=== PATIENT | female | born 1970 | race Caucasian/White ===

== ENCOUNTER 2020-12-23 14:34 | Emergency (ER) | payer BC ==
[~2020-12-23] VITALS: Ht 160 cm; Wt 68.0 kg
[2020-12-23 14:42] VITALS: BP_SYST 105
--- NOTE | 2020-12-23 14:45 | NUR ---
Patient to ER bed 3 to gown for evaluation. Side rails up.
--- NOTE | 2020-12-23 14:55 | NUR ---
Pt came to ER for L lower back pain sharp and constant rates 7/10. Resting in [facility] at this time, no other complaints noted, awaiting
--- NOTE | 2020-12-23 15:04 | NUR ---
ER at bedside examining patient.
[2020-12-23] MEDS ORDERED: HYDROcodone/ACETAMIN 5-325 MG TAB (NORCO/ VICODIN) PO ONE (15:15)
[2020-12-23 15:28] LABS: BILIRUBIN,URINE NEGATIVE (NEGATIVE); BLOOD, URINE 1+ (NEGATIVE); CLARITY/URINE SL CLOUDY (CLEAR); COLOR,URINE YELLOW (YELLOW); GLUCOSE,URINE NEGATIVE (NEGATIVE); KETONES,URINE NEGATIVE (NEGATIVE); LEUKOCYTE ESTERASE ,URINE TRACE (NEGATIVE); NITRITE, URINE NEGATIVE (NEGATIVE); PH,URINE 7.5 (5.0-8.0); PROTEIN URINE NEGATIVE (NEGATIVE)
[2020-12-23] MEDS ORDERED: predniSONE 20 MG TABLET PO ONE (15:45)
[2020-12-23] MEDS ORDERED: KETOROLAC TROMETHAMINE 60 MG/2 ML VIAL IM ONE (15:45)
--- NOTE | 2020-12-23 16:30 | NUR ---
Pt currently resting in [facility] at this time, no distress noted
[2020-12-23 16:43] LABS: BASOPHILS % (AUTO) 0.8 % (0.0-2.0); EOSINOPHILS # (AUTO) 0.1 K/uL (0.0-0.4); EOSINOPHILS % (AUTO) 0.9 % (0.0-4.0); HEMATOCRIT 37.7 % (36-48); HEMOGLOBIN 12.7 g/dL (12.0-16.0); MEAN CORPUSCULAR HEMOGLOBIN 31 pg (27-31); MEAN CORPUSCULAR HGB CONC 34 % (32-36); MEAN CORPUSCULAR VOLUME 91 fL (79.0-98.0); MONOCYTES # (AUTO) 0.4 K/uL (0.0-1.0); MONOCYTES % (AUTO) 6.9 % (1.7-9.3); NEUTROPHILS # (AUTO) 4.9 K/uL (1.8-7.7); NEUTROPHILS % (AUTO) 75.4 % (40.0-70.0); PLATELET COUNT (AUTO) 354 K/uL (130-430); RED BLOOD CELL COUNT(AUTO) 4.13 MIL/uL (4.2-6.2); RED CELL DISTRIBUTION WIDTH 15.2 % (9.0-15.0); WHITE BLOOD COUNT (AUTO) 6.5 K/uL (4.8-10.8)
[2020-12-23 16:43] LABS: BACTERIA,URINE FEW /HPF (None Seen); MUCUS,URINE 1+ /LPF (None Seen); RBC,URINE 0-3 /HPF (0-3); URINE AMORPHOUS PHOSPHATES 2+ /HPF (None Seen)
[2020-12-23 16:56] LABS: CALCIUM 9.3 mg/dL (8.4-11.0); CREATININE 0.79 mg/dL (0.55-1.30); POTASSIUM 4.3 mmol/L (3.5-5.1)
[2020-12-23 16:58] LABS: C-REACTIVE PROTEIN QUANT 0.3 mg/dL (0-0.5)
[2020-12-23 17:02] LABS: ALBUMIN 4.1 g/dL (3.4-4.8); TOTAL BILIRUBIN 0.7 mg/dL (0.0-1.0)
[2020-12-23] MEDS ORDERED: IBUP-1969 PO (17:27)
[2020-12-23] MEDS ORDERED: HYDR-3919 PO (17:27)
[2020-12-23 18:08] VITALS: BP_SYST 105
--- NOTE | 2020-12-23 18:08 | NUR ---
Patient given written and verbal discharge instructions and verbalizes understanding. ER MD discussed with patient the results and treatment provided. Patient in stable condition. ID arm band removed. Rx of Ibuprofen and [place] given. Patient educated on pain management and to follow up with PMD. Pain Scale 0/10. Opportunity for questions provided and answered. Medication side effect fact sheet provided.
[2020-12-23 18:22] LABS: ERYTHROCYTE SEDIMENTATION RATE 12 MM/HR (0-20)
== END 2020-12-23 18:08 | disposition home or self-care (01) ==
LOC: SED 14:34
DX: M54.42 Lumbago with sciatica, left side (principal)
CPT/HCPCS: 36415; 72131; 76376; 80053; 81000; 81025; 85025; 85651; 86140; 87086; 96372; 99284; J1885; J7512

== ENCOUNTER 2023-11-13 16:27 | Emergency (ER) | payer BC, OTHER ==
[~2023-11-13] VITALS: Ht 157.5 cm; Wt 68.0 kg
[~2023-11-13 16:27] MED LIST: HYDR-3919 PO; IBUP-1969 PO
[2023-11-13 16:40] VITALS: BP_SYST 101; PULSE 98; RESP 18; TEMP 97.5; O2SAT 97
[2023-11-13 17:12] LABS: ALBUMIN 3.7 g/dL (3.4-4.8); CALCIUM 8.8 mg/dL (8.4-11.0); CREATININE 0.63 mg/dL (0.55-1.30); POTASSIUM 3.7 mmol/L (3.5-5.1); TOTAL BILIRUBIN 0.7 mg/dL (0.0-1.0); TOTAL PROTEIN, SERUM 7.4 g/dL (6.4-8.3)
[2023-11-13 17:27] LABS: BASOPHILS % (AUTO) 0.4 % (0.0-2.0); EOSINOPHILS % (AUTO) 0.2 % (0.0-4.0); HEMATOCRIT 34.8 % (36-48); HEMOGLOBIN 11.9 g/dL (12.0-16.0); LYMPHOCYTES # (AUTO) 1.1 K/uL (1.0-5.5); LYMPHOCYTES % (AUTO) 11.3 % (20.5-51.5); MEAN CORPUSCULAR HEMOGLOBIN 32 pg (27-31); MEAN CORPUSCULAR HGB CONC 34 % (32-36); MEAN CORPUSCULAR VOLUME 93 fL (79.0-98.0); MONOCYTES # (AUTO) 0.5 K/uL (0.0-1.0); MONOCYTES % (AUTO) 5.4 % (1.7-9.3); NEUTROPHILS # (AUTO) 8.1 K/uL (1.8-7.7); NEUTROPHILS % (AUTO) 82.7 % (40.0-70.0); PLATELET COUNT (AUTO) 328 K/uL (130-430); RED BLOOD CELL COUNT(AUTO) 3.75 MIL/uL (4.2-6.2); RED CELL DISTRIBUTION WIDTH 14.7 % (9.0-15.0); WHITE BLOOD COUNT (AUTO) 9.7 K/uL (4.8-10.8)
[2023-11-13 18:21] LABS: BILIRUBIN,URINE NEGATIVE (NEGATIVE); BLOOD, URINE 3+ (NEGATIVE); CLARITY/URINE SL CLOUDY (CLEAR); COLOR,URINE YELLOW (YELLOW); GLUCOSE,URINE NEGATIVE (NEGATIVE); KETONES,URINE NEGATIVE (NEGATIVE); LEUKOCYTE ESTERASE ,URINE 1+ (NEGATIVE); NITRITE, URINE POSITIVE (NEGATIVE); PROTEIN URINE 2+ (NEGATIVE)
[2023-11-13] MEDS ORDERED: CEPH-548 PO (18:43)
[2023-11-13] MEDS ORDERED: IBUP-1969 PO (18:43)
[2023-11-13] MEDS ORDERED: PHEN-890 PO (18:43)
[2023-11-13] MEDS: PHENAZOPYRIDINE HCL 100 MG TABLET PO ONE (18:51)
[2023-11-13] MEDS: cephALEXin 500 MG CAPSULE PO ONE (18:51)
[2023-11-13] MEDS: KETOROLAC TROMETHAMINE 60 MG/2 ML VIAL IM ONE (18:52)
[2023-11-13 18:58] VITALS: BP_SYST 101; PULSE 98; RESP 18; TEMP 97.5; O2SAT 97
[2023-11-13 19:17] LABS: BACTERIA,URINE MODERATE /HPF (None Seen); MUCUS,URINE None Seen /LPF (None Seen); RBC,URINE 50-80 /HPF (0-3); WBC,URINE 50-80 /HPF (0-3)
== END 2023-11-13 18:58 | disposition home or self-care (01) ==
LOC: SED 16:27
DX: N39.0 Urinary tract infection, site not specified (principal); R30.0 Dysuria; R35.0 Frequency of micturition; R10.9 Unspecified abdominal pain; Z79.899 Other long term (current) drug therapy
CPT/HCPCS: 99283; 80053; 81001; 83690; 85025; 87086; 36415; 96372; 81000; 81015; J1885

== ENCOUNTER 2024-02-02 13:25 | Emergency (ER) | payer BC ==
[~2024-02-02] VITALS: Ht 157.5 cm; Wt 68.0 kg
[2024-02-02 13:25] VITALS: BP_SYST 103; PULSE 71; RESP 17; TEMP 98; O2SAT 99
[~2024-02-02 13:25] MED LIST changes: +CEPH-548 PO; +PHEN-890 PO
[2024-02-02 14:04] LABS: BILIRUBIN,URINE NEGATIVE (NEGATIVE); CLARITY/URINE CLEAR (CLEAR); COLOR,URINE YELLOW (YELLOW); GLUCOSE,URINE NEGATIVE (NEGATIVE); KETONES,URINE NEGATIVE (NEGATIVE); LEUKOCYTE ESTERASE ,URINE 1+ (NEGATIVE); NITRITE, URINE NEGATIVE (NEGATIVE); PROTEIN URINE NEGATIVE (NEGATIVE); UROBILINOGEN,URINE 0.2 (0.2-1.0)
[2024-02-02 14:05] LABS: BLOOD, URINE TRACE (NEGATIVE)
[2024-02-02 14:15] LABS: BACTERIA,URINE FEW /HPF (None Seen); RBC,URINE 0-3 /HPF (0-3); WBC,URINE 0-3 /HPF (0-3)
[2024-02-02] MEDS ORDERED: KETOROLAC TROMETHAMINE 60 MG/2 ML VIAL IM ONE (14:35)
[2024-02-02] MEDS ORDERED: methylPREDNISolone SOD SUCC/PF 62.5 MG/ML VIAL ONE (14:35)
[2024-02-02] MEDS ORDERED: SOM350 PO (14:35)
[2024-02-02 14:50] VITALS: BP_SYST 103; PULSE 71; RESP 17; TEMP 98; O2SAT 99
[2024-02-02] MEDS: methylPREDNISolone SOD SUCC/PF 62.5 MG/ML VIAL IM ONE (14:53)
[2024-02-02] MEDS: KETOROLAC TROMETHAMINE 60 MG/2 ML VIAL IM ONE (14:53)
== END 2024-02-02 14:44 | disposition home or self-care (01) ==
LOC: SED 13:25
DX: M54.50 Low back pain, unspecified (principal); Z79.899 Other long term (current) drug therapy; Z79.2 Long term (current) use of antibiotics
CPT/HCPCS: 99284; 81001; 96372; J1885; 81000; 81015; J2930